=== PATIENT | female | born 1970 | race African-American/Black ===

== ENCOUNTER 2016-09-06 13:01 | Emergency (ER) | payer BC ==
--- NOTE | ~2016-09-06 | CR253 ---
[facility]. [facility] A Service of [facility] & [facility] RADIOLOGY TEXT RESULTS PATIENT: ETHAN COTTER LOCATION: SED : 66 UNIT #: [id number] AGE: [address]: Delores Henderson APRN SEX: F ORDER DR: [id number] [place] [id number] E MR#: [id number] Acc #: [id number] NAME: ETHAN COTTER : 1970 SEX: F STUDY DATE/TIME: 09/06/2016 12:21 UNIT: SED ROOM: STUDY DESCRIPTION: CR Tibia and Fibula 2 Views Rt Attending Physician: Delores Henderson A.P.R.N. Ordering Physician: Delores Henderson A.P.R.N. MEDICAL IMAGING REPORT This report is preliminary unless electronic signature is present. EXAM Right tibia and fibula in 4 views DATE 09/06/2016 COMPARISON None CLINICAL HISTORY Posterior calf pain since fall yesterday. FINDINGS There is no evidence of fracture, dislocation, or radiopaque foreign body. IMPRESSION Normal tibia and fibula. Dictated by... Alphonse Bragg M.D. THIS IS AN ELECTRONICALLY VERIFIED REPORT Alphonse Bragg M.D. at 09/09/2016 1:51 PM TEV/to TD: 09/07/2016 11:50 JOB #: [id number] MEDICAL IMAGING REPORT Page 1 of 1
[~2016-09-06 13:01] MED LIST: NORVASC PO
== END 2016-09-06 13:19 | disposition home or self-care (01) ==
LOC: SED 13:01
DX: S80.11XA Contusion of right lower leg, initial encounter (principal); I10 Essential (primary) hypertension; Z98.890 Other specified postprocedural states; W19.XXXA Unspecified fall, initial encounter; Y92.009 Unspecified place in unspecified non-institutional (private) residence as the place of occurrence of the external cause
CPT/HCPCS: 29530; 73590; 99283